=== PATIENT | male | born 1980 | race Caucasian/White ===

== ENCOUNTER 2021-02-25 11:12 | Outpatient (REF) | payer OTHER, SELFPAY ==
[2021-02-25 12:02] LABS: Imm Gran Abs Auto 0.01 X10*3/uL (0.00-0.03); Imm Gran Pct Auto 0.2 % (0.0-0.4); MANUAL DIFF FLAG SCAN; Mean Corpuscular HGB Conc 33.7 g/dl (31.0-36.0); PLT CLUMP 1; SCAN SMEAR FLAG 1
[2021-02-25 12:04] LABS: Basophils Percent Auto 0.5 % (0-2); Eosinophils Absolute Auto 0.2 X10*3/uL (0.0-0.4); Eosinophils Percent Auto 2.9 % (0-4); Hematocrit 45.7 % (42.0-52.0); Hemoglobin 15.4 g/dl (14.0-18.0); Lymphocytes Absolute Auto 1.4 X10*3/uL (1.2-4.9); Lymphocytes Percent Auto 24.8 % (20-40); Monocytes Absolute Auto 0.5 X10*3/uL (0.1-1.2); Monocytes Percent Auto 8.6 % (2-11); Neutrophils Absolute Auto 3.5 x10*3/uL (2.0-8.3); Red Blood Count 4.97 X10*6/uL (4.60-5.80); Red Cell Distribution Width 12.3 % (11.0-16.0); White Blood Count 5.6 X10*3/uL (4.8-10.8)
[2021-02-25 12:23] LABS: Platelet Count 196 X10*3/uL (160-400); SLIDE REVIEW VERIFIED
[2021-02-25 12:26] LABS: Alanine Aminotransferase 19 U/L (0-40); Albumin Level 4.6 g/dL (3.5-5.0); Alkaline Phosphatase 69 U/L (39-117); Anion Gap 13 (12-20); Aspartate Amino Transferase 24 U/L (5-37); Bilirubin Total 0.6 mg/dL (0.0-1.0); Blood Urea Nitrogen 14 mg/dL (9-16); C Reactive Protein 0.06 mg/dL (< or = 0.50); Calcium 9.8 mg/dL (8.4-10.2); Carbon Dioxide 25 mmol/L (22-29); Chloride 105 mmol/L (96-108); Estimated Glomerular Filt Rate > 60; Glucose Random 121 mg/dL (60-115); Potassium 4.3 mmol/L (3.3-5.1); Sodium 139 mmol/L (135-145); Total Protein 7.3 g/dL (6.5-8.0)
[2021-02-25 12:47] LABS: Prostate Specific Antigen 1.08 ng/mL (<0.05-4.0)
[2021-02-25 13:57] LABS: Appearance Urine CLEAR; Color Urine YELLOW; Glucose Urine UA NEG (NEG); Leukocyte Esterase Urine NEG (NEG); Nitrite Urine NEG (NEG); Urine Blood NEG (NEG); Urine Ketones NEG (NEG); Urine Protein NEG (NEG-TRACE)
[2021-03-02 18:36] LABS: Testosterone, Free 89.8 pg/mL (35.0-155.0); Testosterone, Total 528 ng/dL (250-1100)
== END 2021-02-25 11:13 | disposition home or self-care (01) ==
LOC: HO.LAB 11:12
PROVIDERS: PCP Internal Medicine; Visit Provider Internal Medicine
DX: Z12.5 Encounter for screening for malignant neoplasm of prostate (principal); R10.2 Pelvic and perineal pain; Z85.47 Personal history of malignant neoplasm of testis
CPT/HCPCS: 36415; 80053; 81003; 84153; 84402; 84403; 85025; 86140; 87086

== ENCOUNTER 2022-03-12 09:32 | Outpatient (REF) | payer OTHER, SELFPAY ==
[2022-03-12 10:26] LABS: Appearance Urine Clear; Color Urine Dark Yellow; Glucose Urine UA Negative (Negative); Leukocyte Esterase Urine Negative (Negative); Nitrite Urine Negative (Negative); PH 7.5 (5.0-9.0); Specific Gravity - Urine 1.025 (1.005-1.025); Urine Blood Negative (Negative); Urine Ketones Negative (Negative); Urine Protein Trace mg/dL (Neg-Trace)
[2022-03-12 10:31] LABS: Bacteria Urine None Seen (None Seen); Hyaline Casts Urine 0-2 /LPF (0-2); RBC Urine 0-2 /HPF (0-2); Squamous Epithelial Cell Urine 0-2 /HPF (0-2)
[2022-03-12 13:45] LABS: CT PCR NOT DETECTED (Not Detect.); NG PCR NOT DETECTED (Not Detect.)
== END 2022-03-12 09:33 | disposition home or self-care (01) ==
LOC: HO.LAB 09:32
PROVIDERS: PCP Internal Medicine; Visit Provider Internal Medicine
DX: Z11.3 Encounter for screening for infections with a predominantly sexual mode of transmission (principal); R30.0 Dysuria
CPT/HCPCS: 81001; 87086; 87491; 87591

== ENCOUNTER 2022-05-05 09:04 | Outpatient (REF) | payer OTHER, SELFPAY ==
[2022-05-05 09:16] LABS: MANUAL DIFF FLAG NO
[2022-05-05 10:10] LABS: Appearance Urine Clear; Color Urine Yellow; Glucose Urine UA Negative (Negative); Leukocyte Esterase Urine Negative (Negative); Nitrite Urine Negative (Negative); Specific Gravity - Urine 1.025 (1.005-1.025); Urine Blood Negative (Negative); Urine Ketones Trace mg/dL (Negative); Urine Protein Trace mg/dL (Neg-Trace)
[2022-05-05 10:12] LABS: Basophils Percent Auto 0.3 % (0-2); Eosinophils Absolute Auto 0.1 X10*3/uL (0.0-0.4); Eosinophils Percent Auto 1.1 % (0-4); Hematocrit 43.8 % (42.0-52.0); Hemoglobin 14.9 g/dl (14.0-18.0); Imm Gran Abs Auto 0.02 X10*3/uL (0.00-0.03); Imm Gran Pct Auto 0.3 % (0.0-0.4); Lymphocytes Absolute Auto 1.7 X10*3/uL (1.2-4.9); Lymphocytes Percent Auto 26.2 % (20-40); Mean Corpuscular Volume 88.3 fL (80.0-98.0); Mean Platelet Volume 11.1 fL (9.4-12.4); Monocytes Absolute Auto 0.6 X10*3/uL (0.1-1.2); Neutrophils Absolute Auto 4.1 x10*3/uL (2.0-8.3); Neutrophils Percent Auto 63.1 % (45-73); Platelet Count 270 X10*3/uL (160-400); Red Blood Count 4.96 X10*6/uL (4.60-5.80); Red Cell Distribution Width 12.4 % (11.0-16.0); White Blood Count 6.5 X10*3/uL (4.8-10.8)
[2022-05-05 11:06] LABS: Alanine Aminotransferase 18 U/L (0-40); Albumin Level 4.7 g/dL (3.5-5.0); Alkaline Phosphatase 63 U/L (39-117); Anion Gap 14 (12-20); Aspartate Amino Transferase 30 U/L (5-37); Bilirubin Total 0.9 mg/dL (0.0-1.0); Blood Urea Nitrogen 17 mg/dL (9-16); Calcium 9.6 mg/dL (8.4-10.2); Carbon Dioxide 27 mmol/L (22-29); Chloride 103 mmol/L (96-108); Cholesterol 133 mg/dL; Estimated Glomerular Filt Rate > 60; Glucose Fasting 111 mg/dL (60-99); HDL Cholesterol 39 mg/dL; LDL Cholesterol Calculated 83 mg/dl; Sodium 140 mmol/L (135-145); Total Protein 6.9 g/dL (6.5-8.0); Triglycerides 56 mg/dL
== END 2022-05-05 09:05 | disposition home or self-care (01) ==
LOC: HO.LAB 09:04
PROVIDERS: PCP Internal Medicine; Visit Provider Internal Medicine
DX: Z00.00 Encounter for general adult medical examination without abnormal findings (principal)
CPT/HCPCS: 36415; 80053; 80061; 81003; 85025

== ENCOUNTER 2022-06-04 13:35 | Outpatient (REF) | payer OTHER, SELFPAY ==
--- NOTE | ~2022-06-04 | XR_ITS ---
EXAMINATION: XR cervical spine min 6V CLINICAL INFORMATION: Pain COMPARISON: Cervical spine radiographs 05/18/2017 TECHNIQUE: 5 views of the cervical spine were obtained. FINDINGS: The cervical spine is visualized to the level of C7-T1 on the lateral view. Loss of the usual cervical spine lordosis which may be due to positioning or muscle spasm. Vertebral body heights are maintained. Lateral masses of C1 are well aligned on C2. Visualized portion of the dens is intact. Mild degenerative disc disease at C5-C6, manifested by small anterior disc osteophyte complex is similar to prior. Uncovertebral hypertrophy and facet arthropathy results in mild bilateral multilevel neural foraminal narrowing. No prevertebral soft tissue swelling. XR/XR cervical spine min 6V IMPRESSION: * Mild spondylosis of the cervical spine, as above detailed. Loss of the usual cervical spine lordosis. * Mild neural foraminal narrowing, as above detailed.
[2022-06-04 14:55] LABS: C Reactive Protein < 0.10 mg/dL (< or = 0.50); Rheumatoid Factor < 13.0 IU/mL (<15.0)
[2022-06-06 15:53] LABS: Anti Nuclear Antibody Screen NEGATIVE (NEGATIVE)
== END 2022-06-04 13:36 | disposition home or self-care (01) ==
LOC: HO.XRAY 13:35
PROVIDERS: PCP Internal Medicine; Visit Provider Internal Medicine
DX: M54.9 Dorsalgia, unspecified (principal); Z87.19 Personal history of other diseases of the digestive system
CPT/HCPCS: 36415; 72052; 82550; 86038; 86039; 86140; 86431

== ENCOUNTER 2022-12-25 15:13 | Outpatient (REF) | payer OTHER, SELFPAY ==
[2022-12-25 15:25] LABS: MANUAL DIFF FLAG NO
[2022-12-25 15:37] LABS: Basophils Percent Auto 0.3 % (0-2); Eosinophils Absolute Auto 0.1 X10*3/uL (0.0-0.4); Eosinophils Percent Auto 1.5 % (0-4); Hematocrit 43.2 % (42.0-52.0); Hemoglobin 14.5 g/dl (14.0-18.0); Imm Gran Abs Auto 0.02 X10*3/uL (0.00-0.03); Imm Gran Pct Auto 0.3 % (0.0-0.4); Lymphocytes Absolute Auto 1.1 X10*3/uL (1.2-4.9); Lymphocytes Percent Auto 16.2 % (20-40); Mean Corpuscular HGB Conc 33.6 g/dl (31.0-36.0); Mean Corpuscular Volume 89.4 fL (80.0-98.0); Monocytes Absolute Auto 0.6 X10*3/uL (0.1-1.2); Monocytes Percent Auto 9.5 % (2-11); Neutrophils Absolute Auto 4.9 x10*3/uL (2.0-8.3); Neutrophils Percent Auto 72.2 % (45-73); Platelet Count 232 X10*3/uL (160-400); Red Blood Count 4.83 X10*6/uL (4.60-5.80); Red Cell Distribution Width 12.1 % (11.0-16.0); White Blood Count 6.7 X10*3/uL (4.8-10.8)
[2022-12-25 16:26] LABS: Erythrocyte Sedimentation Rate 3 MM/HR (0-15)
[2022-12-25 16:56] LABS: Alanine Aminotransferase 16 U/L (0-40); Albumin Level 4.6 g/dL (3.5-5.0); Alkaline Phosphatase 58 U/L (39-117); Anion Gap 12 (12-20); Aspartate Amino Transferase 23 U/L (5-37); Bilirubin Total 0.7 mg/dL (0.0-1.0); Blood Urea Nitrogen 13 mg/dL (9-16); C Reactive Protein < 0.04 mg/dL (< or = 0.50); Calcium 9.3 mg/dL (8.4-10.2); Carbon Dioxide 27 mmol/L (22-29); Chloride 103 mmol/L (96-108); Cholesterol 147 mg/dL (<200); Estimated Glomerular Filt Rate > 60; Glucose Random 93 mg/dL (60-115); HDL Cholesterol 45 mg/dL (>40); LDL Cholesterol Calculated 93 mg/dL (<100); Lactate Dehydrogenase 167 U/L (118-273); Potassium 3.8 mmol/L (3.3-5.1); Sodium 138 mmol/L (135-145); Total Protein 7.3 g/dL (6.5-8.0); Triglycerides 48 mg/dL (<150)
[2022-12-25 17:16] LABS: Vitamin B12 509 pg/mL (200-900)
== END 2022-12-25 15:14 | disposition home or self-care (01) ==
LOC: HO.LAB 15:13
PROVIDERS: PCP Internal Medicine; Visit Provider Internal Medicine
DX: J45.909 Unspecified asthma, uncomplicated (principal); R63.4 Abnormal weight loss; M54.2 Cervicalgia; Z87.19 Personal history of other diseases of the digestive system
CPT/HCPCS: 36415; 80053; 80061; 82550; 82607; 83615; 85025; 85652; 86140

== ENCOUNTER 2023-01-04 12:53 | Outpatient (REF) | payer OTHER, SELFPAY ==
[2023-01-04 14:26] LABS: Free T4 (Free Thyroxine) 0.89 ng/dL (0.71-1.85); Thyroid Stimulating Hormone 0.85 uIU/mL (0.32-4.0)
== END 2023-01-04 12:54 | disposition home or self-care (01) ==
LOC: HO.LAB 12:53
PROVIDERS: PCP Internal Medicine; Visit Provider Internal Medicine
DX: R53.83 Other fatigue (principal)
CPT/HCPCS: 36415; 84439; 84443

== ENCOUNTER 2023-01-18 07:24 | Outpatient (REF) | payer OTHER, SELFPAY ==
--- NOTE | ~2023-01-18 | CT_ITS ---
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 Dandy-Walker variant. COMPARISON: None available. TECHNIQUE: Contiguous axial imaging was performed from the skull base to vertex without intravenous administration of contrast. This CT examination was performed using dose optimization techniques as appropriate, variously including the following: *Automated exposure control *Adjustment of mA and/or kV according to patient size (this includes techniques or standardized protocols for targeted exams where dose is matched to indication/reason for exam; i.e. 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 There is no intracranial hemorrhage, hydrocephalus, extra-axial surface collection, midline shift, or other herniation pattern. [place] to white matter differentiation is diffusely maintained without evidence of an evolved acute territorial infarct. The basilar cisterns are preserved. No significant soft tissue abnormality. No acute osseous abnormality. The paranasal sinuses and the mastoid air cells are well aerated. CT/CT head/brain wo IV con IMPRESSION: No acute intracranial abnormality. 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
== END 2023-01-18 07:25 | disposition home or self-care (01) ==
LOC: HO.CT 07:24
PROVIDERS: PCP Internal Medicine; Visit Provider Internal Medicine
DX: G93.0 Cerebral cysts (principal); J34.1 Cyst and mucocele of nose and nasal sinus
CPT/HCPCS: 70450

== ENCOUNTER 2023-02-16 11:16 | Outpatient (REF) | payer OTHER, SELFPAY ==
--- NOTE | ~2023-02-16 | XR_ITS ---
EXAMINATION: XR CERVICAL SPINE CLINICAL INFORMATION: Neck pain. COMPARISON: June 04, 2022 TECHNIQUE: 5 views of the cervical spine. FINDINGS: Straightening of the normal cervical lordosis. Visualization of C7-T1 remains limited due to overlying soft tissues. Moderate degenerative changes with hypertrophic change and loss of disc space height at C5-C6 redemonstrated. Uncovertebral hypertrophy and facet arthropathy with multilevel bilateral neural foraminal narrowing. XR/XR cervical spine 4V IMPRESSION: Mild cervical spondylosis. MRI recommended if there is clinical concern for fracture or other underlying pathology.
== END 2023-02-16 11:17 | disposition home or self-care (01) ==
LOC: HO.XRAY 11:16
PROVIDERS: PCP Internal Medicine; Visit Provider Internal Medicine
DX: M54.2 Cervicalgia (principal)
CPT/HCPCS: 72050

== ENCOUNTER 2023-05-15 04:12 | Emergency (ER) | payer OTHER, SELFPAY ==
--- NOTE | ~2023-05-15 | XR_ITS ---
EXAMINATION: XR CHEST CLINICAL INFORMATION: Cough. COMPARISON: None available. TECHNIQUE: Frontal view of the chest was obtained. FINDINGS: No significant abnormality is noted involving the heart, lungs, mediastinum, bony thorax or soft tissues. XR/XR chest 1V IMPRESSION: Unremarkable chest examination.
[2023-05-15 04:18] VITALS: BP 132/87; PULSE 92; RESP 16; TEMP 37; O2SAT 100; BMI 20.7
--- NOTE | 2023-05-15 04:24 | ECG_ITS ---
Test Reason : cp Blood Pressure : / mmHG Vent. Rate : 079 BPM Atrial Rate : 079 BPM P-R Int : 138 ms QRS Dur : 090 ms QT Int : 372 ms P-R-T Axes : 044 066 047 degrees QTc Int : 426 ms Normal sinus rhythm Early repolarization Otherwise normal ECG No previous ECGs available Referred By: Generic ED Physician Electronically Signed By:LEWIS BYNUM
[2023-05-15 05:06] VITALS: BP 138/79; PULSE 79; RESP 12; TEMP 36.6; O2SAT 99
[2023-05-15 05:07] LABS: Basophils Absolute Auto 0.1 X10*3/uL (0.0-0.2); Basophils Percent Auto 0.6 % (0-2); Eosinophils Absolute Auto 0.2 X10*3/uL (0.0-0.4); Eosinophils Percent Auto 2.1 % (0-4); Hematocrit 42.6 % (42.0-52.0); Hemoglobin 14.5 g/dl (14.0-18.0); Imm Gran Abs Auto 0.02 X10*3/uL (0.00-0.03); Imm Gran Pct Auto 0.2 % (0.0-0.4); Lymphocytes Absolute Auto 2.4 X10*3/uL (1.2-4.9); Lymphocytes Percent Auto 28.1 % (20-40); Mean Corpuscular Hemoglobin 29.5 pg (27.0-33.0); Mean Corpuscular Volume 86.8 fL (80.0-98.0); Mean Platelet Volume 10.1 fL (9.4-12.4); Monocytes Absolute Auto 0.8 X10*3/uL (0.1-1.2); Monocytes Percent Auto 9.3 % (2-11); Neutrophils Absolute Auto 5.1 x10*3/uL (2.0-8.3); Neutrophils Percent Auto 59.7 % (45-73); Platelet Count 304 X10*3/uL (160-400); Red Blood Count 4.91 X10*6/uL (4.60-5.80); Red Cell Distribution Width 12.4 % (11.0-16.0); White Blood Count 8.5 X10*3/uL (4.8-10.8)
[2023-05-15 05:08] LABS: MANUAL DIFF FLAG NO
--- OUTSIDE RECORDS SUMMARY | 2023-05-15 05:12 | XMS_ITS | Continuity of Care Document ---
Author Name Unknown Organization [facility] Address [address] [place] [address]- Care Team Providers Care Cloth Hand Name Role Phone Jamie Chen MD Primary Care Physician [phone] Encounter [facility] NBR [id number] Date(s): 07/14/21 - 07/21/21 [facility] [address] [place] [address]- Attending Physician: Gab Mar MD Admitting Physician: Gab Mar MD Referring Physician: Jamie Chen MD Allergies, Adverse Reactions, Alerts No Known Allergies Medications mesalamine 1.2 g oral delayed release tablet 4 tablet = 4.8 Gm, By Mouth, Daily, # 224 tablet, 0 Refills, Maintenance, 07/14/21 14:46:00 EDT, ECTablet, Partial fill upon patient request if the prescription is for a schedule II opioid drug. Start Date: 07/14/21 Status: Ordered Vital Signs Most recent to oldest [Reference Range]: 1 Weight 77.4 kg (07/14/21 2:42 PM) Pulse Rate [55-90 bpm] 93 bpm *H* (07/14/21 2:42 PM) Blood Pressure [90-138/55-84 mm Hg] 123/ 65mm Hg (07/14/21 2:42 PM) Blood pressure sites Arm, right (07/14/21 2:42 PM) Weight Obtained Via Standing scale (07/14/21 2:42 PM)
--- OUTSIDE RECORDS SUMMARY | 2023-05-15 05:12 | XMS_ITS | Continuity of Care Document ---
Author Name Unknown Organization [facility] Address [address] [place] [address]- Care Team Providers Care Schedule Hanger Name Role Phone Jamie Chen MD Primary Care Physician Encounter [facility] [place] Date(s): 07/14/21 - 08/13/21 [facility] [address] [place] [id number]- Attending Physician: Maurizio Johnson Admitting Physician: Maurizio Johnson Referring Physician: AdmtrMaurizio Allergies, Adverse Reactions, Alerts No Known Allergies Medications mesalamine 1.2 g oral delayed release tablet 4 tablet = 4.8 Gm, By Mouth, Daily, # 224 tablet, 0 Refills, Maintenance, 07/14/21 14:46:00 EDT, ECTablet, Partial fill upon patient request if the prescription is for a schedule II opioid drug. Start Date: 07/14/21 Status: Ordered
[2023-05-15 05:21] LABS: IDNOW Serial# 08D9AD1C; Influenza A Negative (Negative); Influenza B2 Negative (Negative)
[2023-05-15 05:22] LABS: COVID-19 Test Negative (Negative); IDNOW Serial# 152EDE1D
[2023-05-15 05:24] LABS: Alanine Aminotransferase 16 U/L (0-40); Albumin Level 4.4 g/dL (3.5-5.0); Alkaline Phosphatase 72 U/L (39-117); Anion Gap 14 (12-20); Aspartate Amino Transferase 21 U/L (5-37); Bilirubin Total 0.3 mg/dL (0.0-1.0); Blood Urea Nitrogen 9 mg/dL (9-16); Calcium 9.7 mg/dL (8.4-10.2); Carbon Dioxide 27 mmol/L (22-29); Chloride 101 mmol/L (96-108); Creatinine Clr Calc Pharmacy 110.5; Estimated Glomerular Filt Rate > 60; Glucose Random 111 mg/dL (60-115); Potassium 3.5 mmol/L (3.3-5.1); Sodium 138 mmol/L (135-145); Total Protein 7.3 g/dL (6.5-8.0)
--- NOTE | 2023-05-15 06:22 | ED.GENADULT ---
HPI - General Adult General Chief complaint: Upper Respiratory Symptoms Stated complaint: asthma Time Seen by Provider: 05/15/23 06:22 Source: patient Mode of arrival: ambulatory Limitations: no limitations History of Present Illness HPI narrative: Patient is a 43-year-old male with history of asthma presenting to the emergency department with complaint of worsening cough over the past week. States cough is nonproductive, denies fevers. 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 Also complains of persistent mild headaches states he typically does not require an inhaler for his asthma but required one today. Cough worsens with laying supine. Reports left lower rib pain with coughing which he states happens frequently when he is sick with URI symptoms. He denies hemoptysis. He denies any abdominal pain, nausea, vomiting, diarrhea. Denies chest pain or palpitations. Used OTC guaifenisen with little relief. MD complaint: cough Onset (ago): week(s) Associated symptoms: headaches Treatments prior to arrival: other Related Data Previous Rx's Medication Instructions Recorded benzonatate 100 mg capsule 100 mg PO TID PRN cough #20 caps 05/15/23 prednisone 20 mg tablet 40 mg (2 x 20 mg) PO DAILY #10 tabs 05/15/23 Allergies Allergy/AdvReac Type Severity Reaction Status Date / Time Iodinated Contrast Media Allergy Unknown FAINT, Verified 05/15/23 04:17 [IV DYE, IODINE CONTAINING ITCHY CONTRAST ] NSAIDS (Non-Steroidal Allergy Unknown GI BLEEDING Verified 05/15/23 04:17 Anti-Inflamma [NSAIDS (NON-STEROIDAL ANTI-INFLAMMA] seasonal Allergy Unknown congestion Uncoded 08/30/15 00:00 SHELLFISH Allergy Unknown NAUSEA, Uncoded 12/21/19 14:58 ITCHY shellfish Allergy Unknown itching Uncoded 08/30/15 00:00 Review of Systems Review of Systems: As per HPI. Yes all other systems are reviewed and are negative Constitutional: Constitutional: Reports as per HPI [facility] Social History Social History Smoked in Last 30 Days: No Use of substances other than those prescribed or required for medical reasons: No Advance Directives: No Advance Directives Information Provided: No Physical Exam ED Vital Signs: Vital Signs - 24 hr 05/15/23 04:18 05/15/23 05:06 Temperature 98.6 F 98 F Pulse Rate 92 79 Respiratory Rate 16 12 Blood Pressure 132/87 138/79 Pulse Oximetry 100 99 Oxygen Delivery Method Room Air Room Air BMI result Body Mass Index 20.7 Vital signs have been reviewed and appear to be correct. Blood pressure normal. Heart rate normal. Respiratory rate normal. Temperature normal. Oxygen saturation normal. Const General: cooperative, healthy appearing and no acute distress Orientation/consciousness: oriented to person, oriented to place, oriented to time and patient oriented x3 Limitations: no limitations HENMT Head: Yes normocephalic and Yes atraumatic Ears: external ears normal General nose exam: Normal external nose present Face and sinus: Yes face symmetric Mouth: oropharynx normal and moist mucous membranes Throat: Yes uvula midline Eyes Pupils: Equal, round and reactive pupils present Neck Neck: Yes normal visual inspection and Yes supple Chest Chest palpation & inspection: normal inspection of the chest and normal palpation of entire chest wall Resp Effort & Inspection: normal respiratory effort and able to speak in complete sentences Auscultation: clear to auscultation bilaterally Cardio Rate: regular rate Rhythm: regular rhythm Heart sounds: S1 normal heart sound present and S2 normal heart sound present GI Palpation (GI): Soft to palpation and nontender Auscultation: normoactive bowel sounds General: Yes no CVA tenderness Back/Spine/Pelvis Back: no CVA tenderness Skin General skin exam: elasticity normal and turgor normal Neuro General: oriented to person, oriented to place, oriented to time, patient oriented x3, moves all extremities, no focal motor deficits and CN's II-XI intact bilaterally Cranial nerves: Yes Equal, round and reactive pupils present Cognition (Neuro): normal cognition Extrem General: Yes full ROM, Yes no pedal edema and Yes no calf tenderness Psych Mental Status: mental status grossly normal Affect: normal affect Thought process: Normal thought process present Medical Decision Making Medical Decision Making MDM Narrative: Patient is a 43-year-old male with history of asthma presenting to the emergency department with complaint of worsening cough over the past week. On exam patient is awake, A+Ox3, VS WNL, afebrile, normal neurological exam without focal deficits, physical exam findings as above. Given reported symptoms and physical exam findings, initial differential includes viral URI, asthma exacerbation, Covid, flu, bronchitis, pneumonia. Unlikely acute carbon monoxide toxicity, but will obtain carboxyhemoglobin level at patient request. Labs notable for normal carboxyhemoglobin, no leukocytosis, no anemia, no electrolye abnormalities. X-ray notable for no evidence of pneumonia. My interpretation is in agreement with the radiologist's interpretation. Feel patient is stable for discharge home at this time. Will treat with course of prednisone, benzonatate, patient stating he has adequate amount of albuterol inhaler at home. Return precautions discussed. Advised patient to follow up with PCP. Patient verbalized understanding of and agreement with plan. Differential Diagnosis Differential Diagnoses: The differential diagnosis associated with the presentation includes As per [facility] Lab Data [facility] Lab Attestation statement: I reviewed the patient's lab results. As per [facility] 05/15/23 05:00 05/15/23 05:00 Labs: Lab Results 05/15/23 05/15/23 Range/Units 05:00 06:53 WBC 8.5 (4.8-10.8) X10*3/uL RBC 4.91 (4.60-5.80) X10*6/uL Hgb 14.5 (14.0-18.0) g/dl Hct 42.6 (42.0-52.0) % MCV 86.8 (80.0-98.0) fL MCH 29.5 (27.0-33.0) pg MCHC 34.0 (31.0-36.0) g/dl RDW 12.4 (11.0-16.0) % Plt Count 304 D (160-400) X10*3/uL MPV 10.1 (9.4-12.4) fL Immature Gran % (Auto) 0.2 (0.0-0.4) % Neut % (Auto) 59.7 (45-73) % Lymph % (Auto) 28.1 (20-40) % Gates % (Auto) 9.3 (2-11) % Eos % (Auto) 2.1 (0-4) % Baso % (Auto) 0.6 (0-2) % Lymph # (Auto) 2.4 (1.2-4.9) X10*3/uL Gates # (Auto) 0.8 (0.1-1.2) X10*3/uL Eos # (Auto) 0.2 (0.0-0.4) X10*3/uL Baso # (Auto) 0.1 (0.0-0.2) X10*3/uL Abs Immat Gran (auto) 0.02 (0.00-0.03) X10*3/uL Absolute Neuts (auto) 5.1 (2.0-8.3) x10*3/uL Absolute Nucleated RBC 0.000 (0.0-0.012) X10*3/uL Nucleated RBC % (auto) 0.0 (0.0-0.2) /100WBC Carboxyhemoglobin % 2.2 % Sodium 138 (135-145) mmol/L Potassium 3.5 (3.3-5.1) mmol/L Chloride 101 (96-108) mmol/L Carbon Dioxide 27 (22-29) mmol/L Anion Gap 14 (12-20) BUN 9 (9-16) mg/dL Creatinine 0.79 (0.5-1.4) mg/dL Estim Creat Clear Calc 110.5 Estimated GFR > 60 Random Glucose 111 (60-115) mg/dL Calcium 9.7 (8.4-10.2) mg/dL Total Bilirubin 0.3 (0.0-1.0) mg/dL AST 21 (5-37) U/L ALT 16 (0-40) U/L Alkaline Phosphatase 72 (39-117) U/L Total Protein 7.3 (6.5-8.0) g/dL Albumin 4.4 (3.5-5.0) g/dL COVID-19 (GENEVIEVE) Negative (Negative) COVID-19 Clin Com See Note Influenza Type A (YASMIN) Negative (Negative) Influenza Type B (YASMIN) Negative (Negative) Influenza A & B Note See Note Independent Interpretation I performed an independent interpretation of an: Plain X-Ray Interpretation: No evidence of pneumonia. Radiology Impression Discussion of test interpretation with radiology: I have reviewed the radiologist's reading. Radiologist Impression: XR/XR chest 1V IMPRESSION: Unremarkable chest examination. External Record Review External record reviewed: Inpatient record, Office record and Outpatient record Prescription Management I considered prescription management with: Other Discharge Plan Discharge Clinical Impression: Viral upper respiratory infection, Asthma exacerbation Patient Disposition: Home, Self-Care Instructions: Asthma (DC), Viral Syndrome (ED) Additional Instructions: You were evaluated in the emergency department today for cough. Your Covid and flu tests were negative. Your symptoms are likely related to a viral illness which will resolve on its own with time and rest. You are being prescribed a short course of steroids to decrease inflammation as well as cough medicine. Please take these medications as prescribed. You should ensure adequate fluid intake, and can use Tylenol 650 mg or ibuprofen 600 mg every 6 hours as needed for fever or discomfort. Please follow-up with your primary care provider this week. Return to the emergency department if you develop chest pain, worsening shortness of breath, difficulty swallowing, fever 100.4? F or greater or any other concerning symptoms. Prescriptions: New prednisone 20 mg tablet 40 mg PO DAILY Qty: 10 0RF benzonatate 100 mg capsule 100 mg PO TID PRN (Reason: cough) Qty: 20 0RF
[2023-05-15 06:59] LABS: Carbon Monoxide POC 2.2 %
[2023-05-15 07:02] LABS: Carbon Monoxide Refer to POC result
[2023-05-15 08:32] VITALS: BP 128/90; PULSE 79; RESP 16; TEMP 36.6; O2SAT 100
== END 2023-05-15 08:38 | disposition home or self-care (01) ==
PROVIDERS: Registered Nurse Emergency; Emergency Provider Emergency Medicine; PCP Internal Medicine
DX: J06.9 Acute upper respiratory infection, unspecified (principal); J45.901 Unspecified asthma with (acute) exacerbation; Z11.52 Encounter for screening for COVID-19
CPT/HCPCS: 36415; 71045; 80053; 82375; 85025; 87502; 87635; 93005; 99283; 99285

== ENCOUNTER → 2023-05-15 04:24 | Outpatient (BNV) | payer OTHER, SELFPAY | PROVIDERS: Emergency Provider Emergency Medicine; PCP Internal Medicine; Visit Provider Internal Medicine | DX: R07.9 Chest pain, unspecified (principal) | CPT/HCPCS: 93010 ==

== ENCOUNTER 2023-09-23 14:54 | Outpatient (REF) | payer OTHER, SELFPAY ==
[2023-09-23 15:11] LABS: MANUAL DIFF FLAG NO
[2023-09-23 15:43] LABS: Basophils Percent Auto 0.4 % (0-2); Eosinophils Absolute Auto 0.1 X10*3/uL (0.0-0.4); Eosinophils Percent Auto 1.2 % (0-4); Hemoglobin 15.2 g/dl (14.0-18.0); Imm Gran Abs Auto 0.02 X10*3/uL (0.00-0.03); Imm Gran Pct Auto 0.3 % (0.0-0.4); Lymphocytes Absolute Auto 1.4 X10*3/uL (1.2-4.9); Lymphocytes Percent Auto 20.5 % (20-40); Mean Corpuscular HGB Conc 34.5 g/dl (31.0-36.0); Mean Corpuscular Hemoglobin 30.8 pg (27.0-33.0); Mean Corpuscular Volume 89.2 fL (80.0-98.0); Mean Platelet Volume 10.1 fL (9.4-12.4); Monocytes Absolute Auto 0.5 X10*3/uL (0.1-1.2); Neutrophils Absolute Auto 4.7 x10*3/uL (2.0-8.3); Neutrophils Percent Auto 69.6 % (45-73); Platelet Count 298 X10*3/uL (160-400); Red Blood Count 4.93 X10*6/uL (4.60-5.80); White Blood Count 6.7 X10*3/uL (4.8-10.8)
[2023-09-23 16:22] LABS: Alanine Aminotransferase 16 U/L (0-40); Albumin Level 4.8 g/dL (3.5-5.0); Alkaline Phosphatase 68 U/L (39-117); Anion Gap 14 (12-20); Aspartate Amino Transferase 22 U/L (5-37); Blood Urea Nitrogen 11 mg/dL (9-16); C Reactive Protein < 0.04 mg/dL (< or = 0.50); Calcium 9.8 mg/dL (8.4-10.2); Carbon Dioxide 29 mmol/L (22-29); Chloride 103 mmol/L (96-108); Cholesterol 173 mg/dL (<200); Estimated Glomerular Filt Rate > 60; Glucose Random 101 mg/dL (60-115); Sodium 142 mmol/L (135-145); Total Protein 7.6 g/dL (6.5-8.0)
[2023-09-23 16:27] LABS: Erythrocyte Sedimentation Rate 3 MM/HR (0-15)
[2023-09-23 16:33] LABS: Free T4 (Free Thyroxine) 0.93 ng/dL (0.71-1.85)
[2023-09-23 16:37] LABS: Vitamin B12 520 pg/mL (200-900)
== END 2023-09-23 14:55 | disposition home or self-care (01) ==
LOC: HO.LAB 14:54
PROVIDERS: PCP Internal Medicine; Visit Provider Internal Medicine
DX: J45.909 Unspecified asthma, uncomplicated (principal); M54.2 Cervicalgia
CPT/HCPCS: 36415; 80053; 82465; 82550; 82607; 84439; 84443; 85025; 85652; 86140

== ENCOUNTER 2024-10-02 13:55 | Outpatient (AMB) | payer OTHER, SELFPAY ==
--- NOTE | 2024-10-02 13:22 | A.OFFPC_ITS ---
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 Required: No Accompanied by: Self / Same As Patient Allergies Iodinated Contrast Media (IV DYE, IODINE CONTAINING CONTRAST ) Allergy (Intermediate, Verified 10/02/24 14:33) FAINT, ITCHY NSAIDS (Non-Steroidal Anti-Inflamma (NSAIDS (NON-STEROIDAL ANTI-INFLAMMA) Allergy (Intermediate, Verified 10/02/24 14:33) GI BLEEDING Seasonal Allergies Allergy (Intermediate, Verified 10/02/24 14:33) Nasal congestion shellfish derived Allergy (Intermediate, Verified 10/02/24 14:33) nausea/itching Medication List - Last Reconciled 10/02/24 by Slick Camarillo MD albuterol sulfate 90 mcg/actuation (Ventolin HFA) 2 puffs inhalation BID PRN duloxetine 20 mg PO DAILY mesalamine 4.8 grams PO DAILY Tobacco use date assessed: 10/02/24 Dental Screening Dental Screen Date: 10/02/24 Did you have a dental visit in the last 12 months?: Yes Did you have a dental problem in the last 6 months where you did not have access to dental care?: No PFSH Medical History Ulcerative colitis Testicular cancer Surgical History Hx of unilateral orchiectomy H/O colonoscopy Family History (Updated 10/02/24 @ 14:07 by Tika Suggs MA) Mother No problems noted. Father Psoriasis Social History Housing: House Patient Tobacco Use Status: Former Tobacco user e-Cigarette/Vaping Use: Former Use service: No Current occupational status: unemployed Cognitive needs: No Hearing needs: No Vision needs: Yes (rx glasses) Questionnaire PHQ-9 Over the last 2 weeks, how often have you been bothered by any of the following problems? 1. Little interest or pleasure in doing things: not at all 2. Feeling down, depressed, or hopeless: not at all 3. Trouble falling or staying asleep, or sleeping too much: not at all 4. Feeling tired or having little energy: not at all 5. Poor appetite or overeating: not at all 6. Feeling bad about yourself - or that you are a failure or have let yourself or your family down: not at all 7. Trouble concentrating on things, such as reading the newspaper or watching television: not at all 8. Moving or speaking so slowly that other people could have noticed. Or the opposite - being so fidgety or restless that you have been moving around a lot more than usual: not at all 9. Thoughts that you would be better off or of hurting yourself in some way: not at all Total score: 0 Source: Developed by Drs. Marques Davies, Bee Decker, Kenneth Sanderson and colleagues, with an educational kody from [employer]. Thrive Questionnaire Date Thrive assessed: 10/02/24 I am a: Patient Within the past 12 months, did the food you bought not last and you didn't have the money to get more?: Never true Within the past 12 months, did you worry whether your food would run out before you got money to buy more?: Never true Do you have trouble paying for medicines?: No Do you have trouble getting transportation to medical appointments?: No Do you have trouble paying your heating and electricity bill?: No Do you have trouble taking care of your child, family member or friend?: No Do you have trouble with day-to-day activities such as bathing, preparing meals, shopping, managing finances, etc.?: No Are you currently unemployed and looking for a job?: No Are you interested in more education?: No THRIVE Score: 0 AUDIT C Alcohol Use Questionnaire (AUDIT-C) 1. How often do you have a drink containing alcohol?: Never 3. How often do you have six or more drinks on one occasion?: Never Total Score: 0 OPAL-7 AMB Questionnaire OPAL-7 Date OPAL - 7 assessed: 10/02/24 Feeling nervous, anxious, or on edge: 0 = Not at all Not being able to stop or control worryin = Not at all Worrying too much about different things: 0 = Not at all Trouble relaxin = Not at all Being so restless that it is hard to sit still: 0 = Not at all Becoming easily annoyed or irritable: 0 = Not at all Feeling afraid as if something awful might happen: 0 = Not at all Total OPAL-7 score (0-4 normal; 5-9 mild; 10-14 moderate; 15-21 severe): 0 Source: Developed by Drs. Marques Davies, Bee Decker, Kenneth Sanderson and colleagues, with an educational kody from [employer]. Physical exam (Primary Care) Vital Signs: Last Vital Signs Temp 98 F 10/02/24 14:01 Pulse 101 H 10/02/24 14:01 BP 128/70 10/02/24 14:01 Pulse Ox 99 10/02/24 14:01 Oxygen Delivery Method Room Air 10/02/24 14:01 BMI result Body Mass Index 23.7 Tobacco/Smoking Status: Tobacco use Status Tobacco use date assessed 10/02/24 10/02/24 13:23 Patient Tobacco Use Status Former Tobacco user 10/02/24 13:23 e-Cigarette/Vaping Use Former Use 10/02/24 14:07 PHQ-9: PHQ-9 Score PHQ-9: Total score 0 10/02/24 14:07 Thrive Assessment: Date of Thrive Assessment Date Thrive assessed 10/02/24 10/02/24 13:23 Coding Level of Care Code New Pt Level 4 (53301) New Pt Prev Care 40-64y(40375) Diagnoses Osteoarthritis of cervical spine M47.812 Testicular cancer C62.90 Ulcerative colitis K51.90 Assessment & Plan Assessment & Plan (1) Osteoarthritis of cervical spine: Code(s): M47.812 - Spondylosis without myelopathy or radiculopathy, cervical region Plan: Cyclobenzaprine added to the regimen. (2) Testicular cancer: Comment: w/right orchiectomy Code(s): C62.90 - Malignant neoplasm of unspecified testis, unspecified whether descended or undescended Category: Medical (3) Ulcerative colitis: Code(s): K51.90 - Ulcerative colitis, unspecified, without complications Category: Medical Plan: COndtion is stable. Continue current medications Plan History of Present Illness - The patient is a 44-year-old male presenting for a physical examination and management of chronic pain conditions. - Fibromyalgia was diagnosed a few months ago, with symptoms of joint and muscle pain persisting for about seven to eight years. - The patient has a history of testicular cancer treated with chemotherapy in 2011, which has led to ongoing musculoskeletal issues. - Neck and upper back pain have been significant since 2017 or 2018, with imaging showing disc height issues, spondylosis, and loss of cervical lordosis. - The patient experiences a clicking sensation in the neck and thumb joints, described as a trigger thumb phenomenon. - Duloxetine was initiated approximately two years ago for pain management, providing some improvement in mobility but limited pain relief. - Colitis is managed with mesalamine prescribed by Dr. Santiago. - Asthma is managed with albuterol as needed. - The patient has a history of tobacco use, having quit in 2017, and has reduced alcohol consumption due to family history of cirrhosis. - Previous physical therapy and chiropractic interventions provided limited relief for neck pain. 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 - Substance Use: Quit smoking in 2017, reduced alcohol intake due to family history of cirrhosis. Review of Systems - Musculoskeletal: Reports chronic joint and muscle pain, neck and upper back pain, clicking sensation in neck and thumb joints. - Respiratory: Reports asthma managed with albuterol as needed. - Gastrointestinal: Reports colitis managed with mesalamine. Physical Exam General: Cooperative and healthy appearing Nutritional Appearance: Well nourished Orientation/consciousness: Patient oriented x3 Limitations: No limitations Head: Normal to inspection General: Appearance normal, both eyes and all related structures Neck: Normal visual inspection Chest: Normal palpation of entire chest wall Respiratory: N ormal respiratory effort Neurology: Patient oriented x3, reports neck and upper back pain, with noted tension and clicking in the neck and thumb joints. Right testicle is missing, leading to left leg dominance and sciatic-like symptoms. Results - Imaging: Previous cervical spine imaging showed disc height issues, spondylosis, and loss of cervical lordosis. Plan 1. Fibromyalgia - Continue current management with duloxetine, although it provides limited pain relief. - Consider referral to an orthopedic surgeon for further evaluation. 2. Spondylosis - Symptomatic treatment with physical therapy and potential muscle relaxants. - Consider further imaging to assess current status. 3. Colitis - Continue management with mesalamine as prescribed by Dr. Santiago. 4. Asthma - Continue as-needed use of albuterol inhaler. 5. Preventative Care - Order blood work including cholesterol and inflammatory markers. Discussion Notes During the visit, we discussed the management of fibromyalgia with duloxetine, acknowledging its limited efficacy in pain relief but some improvement in mobility. We also considered the potential benefit of a referral to an orthopedic surgeon for further evaluation of musculoskeletal issues. For spondylosis, symptomatic treatment options such as physical therapy and muscle relaxants were discussed, along with the possibility of further imaging to assess the current status. The patient was advised to continue mesalamine for colitis and albuterol for asthma as needed. Preventative care measures include ordering blood work to check cholesterol and inflammatory markers. Patient Instructions - Continue taking duloxetine as prescribed for fibromyalgia. - Follow up with Dr. Santiago for colitis management. - Use albuterol inhaler as needed for asthma symptoms. - Schedule blood work for cholesterol and inflammatory markers. - Consider physical therapy and discuss muscle relaxants with your healthcare provider. Orders: Orders MR cervical spine wo con Today Slick Camarillo MD M47.812 - Spondylosis without myelopathy or radiculopathy, cervical region Basic Metabolic Panel Today Slick Camarillo MD C62.90 - Malignant neoplasm of unspecified testis, unspecified whether descended or undescended, K51.90 - Ulcerative colitis, unspecified, without complications Lipid Panel Today Slick Camarillo MD C62.90 - Malignant neoplasm of unspecified testis, unspecified whether descended or undescended, K51.90 - Ulcerative colitis, unspecified, without complications Complete Blood Count no Diff Today Slick Camarillo MD C62.90 - Malignant neoplasm of unspecified testis, unspecified whether descended or undescended, K51.90 - Ulcerative colitis, unspecified, without complications C Reactive Protein Today Slick Camarillo MD C62.90 - Malignant neoplasm of unspecified testis, unspecified whether descended or undescended, K51.90 - Ulcerative colitis, unspecified, without complications Liver Panel Today Slick Camarillo MD C62.90 - Malignant neoplasm of unspecified testis, unspecified whether descended or undescended, K51.90 - Ulcerative colitis, unspecified, without complications Thyroid Stimulating Hormone Today Slick Camarillo MD C62.90 - Malignant neoplasm of unspecified testis, unspecified whether descended or undescended, K51.90 - Ulcerative colitis, unspecified, without complications UA and rflx microscopic Today Slick Camarillo MD C62.90 - Malignant neoplasm of unspecified testis, unspecified whether descended or undescended, K51.90 - Ulcerative colitis, unspecified, without complications Medications: Discontinued benzonatate Discontinued Reason: Stopped on Transfer 100 mg PO TID PRN 20 caps 0RF baron Suggs MA prednisone Discontinued Reason: Patient no longer taking 40 mg (2 x 20 mg) PO DAILY 10 tabs 0RF Tika Suggs MA
[2024-10-02 14:01] VITALS: BP 128/70; PULSE 101; TEMP 36.6; O2SAT 99; BMI 23.7
--- OUTSIDE RECORDS SUMMARY | 2024-10-02 14:30 | XMS_ITS | Patient Health Record ---
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 Name Role Phone Jamie Chen MD Primary Care Provider Marques Petersen Unavailable [phone] Allergies Allergen (clinical drug ingredient) Drug/Non Drug Allergy documented on EMR Reaction Allergy Type Onset Date Status Gadolinium Unknown Drug Allergy Active Reason For Referral No Information Medications Medication SIG (Take, Route, Frequency, Duration) Notes Start Date End Date Status Ventolin HFA 108 (90 Base) MCG/ACT Inhalation for 50 Days Activ e SUMAtriptan Succinate 50 MG TAKE 1 TABLE T BY MOUTH DAILY NEEDED FOR HEADACHE Oral for 30 Days Active Mesalamine 1.2 GM 4 Orally Once a day for 30 day(s) 05/14/2024 Active DULoxetine HCl 20 MG Oral for 30 Active Immunizations Vaccine Route Administration Date Status Comme nts Influenza Unknown 03/05/2018 Administered Influenza Unknown 02/26/2021 Administered Influenza Unknown 04/05/2023 Administered Social History Tobacco Use: Social History Observation Description Date Details (start date - stop date) Former Smoker NA - NA Tobacco Use/Smoking Question Answer Notes Patient is a former smoker When did you stop smoking? 2018 How long has it been since you last smoked? 6-12 months Alcohol Screen Question Answer Notes Did you have a drink contain ing alcohol in the past year? Yes How often did you have a dri nk containing alcohol in the past year? Monthly or less (1 point) How many drinks did you have on a typical day when you were drinking in the past year? 1 or 2 drinks (0 point) How often did you have 6 or more drinks on one occasion in the past year? Never (0 point) Points 1 Interpretation Negative Section Notes: Nonsmoker since 2011; no sig alcohol Nonsmoker since 2011; no sig alcohol Smoker--trying to quit; drin ks twice a week--somewhat heavy Smoker; drinks twice a week- -somewhat heavy Former smoker; drinks twice a month--somewhat heavy Occasional smoker; drinks tw ice a month--6-pack Occasional smoker; drinks ON CE a month--6-pack Occasional smoker; drinks al cohol occasionally Occasional smoker; drinks al cohol occasionally Problems Problem Type SNOMED Code ICD Code Onset Dates Problem Status W/U Status Risk Notes Problem 752073964 Colon cancer screening (Z12.11) Active confirmed Problem 75530563 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) Active confirmed Problem 60631548 Diarrhea, unspecified type (R19.7) Active confirmed Vital Signs Temperature 97.5 degrees Fahrenheit 08/16/2024 Blood pressure diastolic 01 mm Hg 08/16/2024 Height 69 in 08/16/2024 Blood pressure systolic 001 mm Hg 08/16/2024 Weight 153.4 lbs 08/16/2024 BMI 22.65 kg/m2 08/16/2024 Procedures Procedure Date Ordered Date Performed Result Body Sit e COLONOSCOPY 08/16/2024 N/A Encounters Encounter Location Date Provider Diagnosis [facility] [address] [place] [phone] 08/16/2024 Marques Santiago Ulcerative rectosigmoiditis without complication K51.30 and Colon cancer screening Z12.11 [facility] [address] [place] [phone] 04/28/2024 Marques Santiago [facility] [address] [place] [phone] 08/15/2024 Marques Santiago [facility] [address] [place] [phone] 08/16/2024 Marques Santiago Assessments Encounter Date Diagnosis (ICD Code) Assessment Notes Treatment Notes Treatment Clinical Notes Section Notes 08/16/2024 Ulcerative rectosigmoiditis without complication (ICD-10 - K51.30) Overall, Farshad appears well. Based on his clinical history it does seem that his colitis is in clinical remission for the most part. Even on the days of some loose bowel movements this does not seem to be consistent with colitis given the short-lived symptoms, no bleeding, no abdominal pain, and no report of any mucus in the stools. I did advise him to continue the 4.8 g of mesalamine daily as he is doing. We did review the need for a screening colonoscopy again given that he has had his colitis for more than a decade. I did reassure him about the anesthesia which typically is very safe and very well-tolerated . Full consent has been obtained for the colonoscopy, including risks of bleeding and perforation. The procedure will be done with monitored anesthesia care. We did review the rationale for the colonoscopy in regard to colorectal cancer prevention and/or early detection. At this point Farshad is comfortable with this plan. I did advise Farshad to contact me prior to the procedure if he has any problems or questions I can be of assistance with. Thank you again for allowing me to participate in Farshad's care. I shall continue to keep you advised of his progress. 08/16/2024 Colon cancer screening (ICD-10 - Z12.11) Overall, Farshad appears well. Based on his clinical history it does seem that his colitis is in clinical remission for the most part. Even on the days of some loose bowel movements this does not seem to be consistent with colitis given the short-lived symptoms, no bleeding, no abdominal pain, and no report of any mucus in the stools. I did advise him to continue the 4.8 g of mesalamine daily as he is doing. We did review the need for a screening colonoscopy again given that he has had his colitis for more than a decade. I did reassure him about the anesthesia which typically is very safe and very well-tolerated . Full consent has been obtained for the colonoscopy, including risks of bleeding and perforation. The procedure will be done with monitored anesthesia care. We did review the rationale for the colonoscopy in regard to colorectal cancer prevention and/or early detection. At this point Farshad is comfortable with this plan. I did advise Farshad to contact me prior to the procedure if he has any problems or questions I can be of assistance with. Thank you again for allowing me to participate in Farshad's care. I shall continue to keep you advised of his progress. Plan Of Treatment Pending Test Test Name Order Date COLONOSCOPY 08/16/2024 CLOSTRIDIUM DIFF TOXIN A&B (C DIFF) 07/04 CULTURE, STOOL 07/17/2015 Future Test Test Name Order Date COLONOSCOPY 04/04/2013 COLONOSCOPY 04/07/2023 Next Appt Details Provider Name:Marques Santiago , 10/27/2024 10:30:00 AM, [address] [facility] , [place], [place], [id number], Insurance Providers Payer Name Payer Address Payer Phone Subscriber Number Group Number Insured Name Patient Relationship to Insured Coverage Start Date Coverage End Date [facility] [address] [address] [place], [place] [id number] FARSHAD CLINE Self - patient is the insured Medical (General) History Medical History History ICD Code Testicular cancer--08/2011 ri ght orchiectomy--10/2011-01/2012 chemo-Dr. Castellanos-in remission Denies NM,DM,CVA,Lung disease,renal dise ase Describes neg. 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
== END 2024-10-02 14:33 | disposition home or self-care (01) ==
LOC: HO.HMCHD 13:56
PROVIDERS: PCP Internal Medicine; Visit Provider Internal Medicine
DX: Z00.00 Encounter for general adult medical examination without abnormal findings (principal); M47.812 Spondylosis without myelopathy or radiculopathy, cervical region; C62.90 Malignant neoplasm of unspecified testis, unspecified whether descended or undescended; K51.90 Ulcerative colitis, unspecified, without complications

== ENCOUNTER → 2024-10-02 13:55 | Outpatient (BNVA) | payer OTHER, SELFPAY | PROVIDERS: PCP Internal Medicine; Visit Provider Internal Medicine | DX: M47.812 Spondylosis without myelopathy or radiculopathy, cervical region (principal); C62.90 Malignant neoplasm of unspecified testis, unspecified whether descended or undescended; K51.90 Ulcerative colitis, unspecified, without complications; M79.7 Fibromyalgia; J45.909 Unspecified asthma, uncomplicated | CPT/HCPCS: 99202; 99386 ==

== ENCOUNTER → 2025-02-02 18:18 | Outpatient (BNV) | payer OTHER, SELFPAY | PROVIDERS: PCP Internal Medicine; Visit Provider Radiology Diagnostic Radiology | DX: M47.812 Spondylosis without myelopathy or radiculopathy, cervical region (principal) | CPT/HCPCS: 72141 ==

== ENCOUNTER 2025-02-02 18:20 | Outpatient (REF) | payer OTHER, SELFPAY ==
--- OUTSIDE RECORDS SUMMARY | 2024-02-17 07:00 | XMS_ITS ---
Author Organization [facility] Address [address] [facility] [address] [place] [address] Care Team Providers Care Clothing Manager Name Role Phone April (RETIRED) Jamie MERCHANT Primary Care Provide Marques Ball [phone] REASON FOR VISIT Patient presents today for a ?colonoscopy Encounters Encounter Location Date Provider Diagnosis [facility] [address] [address] 02/17/2024 Marques Santiago Plan Of Treatment No Information Progress Notes * FARSHAD DENNISON RDOB:1979 (44 yo F)Acc No.[id number]:02/17/2024 Progress Notes Patient: Viral CROSS FARSHAD Felder Provider: Emerita Santiago MD :1980 A ge:43 Y S ex:Female Date:02/17/2024 Address:[address] [place], [place] [id number] Pcp:Jamie Chen (RETIRED )MD Subjective: * Chief Complaints: * 1 . Patient presents today for a ?colonoscopy. * Medical History: Objective: * Vitals: Assessment: Plan: * Treatment: * * The named appointment provid er may or may not be the originator of this progress note, and it is not deemed complete until electronically signed by the appointment provider. Sign off status: Pending * Provider: Emerita Santiago MD Date: 04/18/2023 Generated for Printi ng/Fabhupinderg/eTransmitting on: 1 06:29 PM EDT
--- OUTSIDE RECORDS SUMMARY | 2024-05-31 11:20 | XMS_ITS ---
Author Organization [facility] Address [address] [place] [phone] Care Team Providers Care Engineering Group Manager Name Role Phone April (RETIRED) Jamie MERCHANT Primary Care Provide Marques Ball [phone] REASON FOR VISIT COLONOSCOPY Encounters Encounter Location Date Provider Diagnosis [facility] [address] [place] [phone] 05/31/2024 Marques Santiago Plan Of Treatment No Information Progress Notes * MARYISAURAGilbert FARSHAD RDOB:1979 (44 yo F)Acc No.[id number]:05/31/2024 Progress Notes Patient: FARSHAD SALGUERO Provider: Emerita Santiago MD :1980 A ge:44 Y S ex:Female Date:05/31/2024 Address:[address] [place], [place] [phone] Pcp:Jamie Chen (RETIRED )MD Subjective: * Chief Complaints: * 1 . COLONOSCOPY. * Medical History: Objective: * Vitals: Assessment: Plan: * Treatment: * * The named appointment provid er may or may not be the originator of this progress note, and it is not deemed complete until electronically signed by the appointment provider. Sign off status: Pending * Provider: Emerita Santiago MD Date: 0 05/31/2024 Generated for Printi ng/Fabhupinderg/eTransmitting on: 1 06:29 PM EDT
--- OUTSIDE RECORDS SUMMARY | 2024-10-27 06:30 | XMS_ITS ---
Author Organization [facility] Address [address] [place] [phone] Care Team Providers Care Foreign Legal Consultant Name Role Phone April (RETIRED) Jamie MERCHANT Primary Care Provide Marques Ball [phone] REASON FOR VISIT ulcerative colitis,screening Encounters Encounter Location Date Provider Diagnosis [facility] Outpatient [address] [place] [phone] 10/27/2024 Maruqes Santiago Plan Of Treatment No Information Progress Notes * FARSHAD DENNISON RDOB:1979 (44 yo F)Acc No.[id number]:10/27/2024 COLON WITH MAC Patient: FARSHAD SALGUERO Provider: Emerita Santiago MD :1980 A ge:44 Y S ex:Female Date:10/27/2024 Address:[address] [place], [place] [phone] Pcp:Jamie Chen (RETIRED )MD Subjective: * Chief Complaints: * 1 . Ulcerative colitis,screening. * Medical History: Objective: * Vitals: Assessment: Plan: * Treatment: * * The named appointment provid er may or may not be the originator of this progress note, and it is not deemed complete until electronically signed by the appointment provider. Sign off status: Pending * Provider: Emerita Santiago MD Date: 0 10/27/2024 Generated for Printi ng/Fabhupinderg/eTransmitting on: 1 06:29 PM EDT
--- NOTE | ~2025-02-02 | MR_ITS ---
EXAMINATION: MR CERVICAL SPINE WITHOUT CONTRAST CLINICAL INFORMATION: M 47.812. Spondylosis without myelopathy or radiculopathy, cervical region. COMPARISON: None available. TECHNIQUE: MRI of the cervical spine was obtained using routine sequences without contrast. FINDINGS: Craniocervical junction is intact. Normal position of the cerebellar tonsils. Cisterna magna. Mild bone marrow STIR signal at C5-6. Multilevel marginal osteophyte formation and endplate irregularity, decreased intervertebral disc height and signal at C5-6 and to a lesser extent C6-7, C7-T1, C3-4 and C4-5 levels. Reverse curvature apex at C5-6. Posterior marginal osteophyte formation, C3-4. 1 mm retrolisthesis C3-4. Cervical spinal cord signal is normal. C2-3: Left-sided disc osteophyte consummation. No cord compression. Left neuroforamina narrowing. C3-4: Left-sided disc osteophyte consummation abutting the thecal sac. Left-sided neuroforamina narrowing. No cord compression. C4-5: Broad-based disc bulging resulting in reduced AP diameter of the thecal sac. No cord compression. No neuroforamina stenosis. C5-6: Broad-based disc osteophyte compresses formation slightly asymmetric to the right resulting in ventral spinal cord deformity. There is bilateral, right greater than the left neuroforamina stenosis. C6-7: Broad-based disc osteophyte compresses formation resulting in reduced AP diameter thecal sac. There is bilateral neuroforamina stenosis. C7-T1: Broad-based disc osteophyte consummation. No compression upon neural elements. Flow-void signal within the main cerebral vessels is normal. Codominant vertebral arteries. No prevertebral compartment hematoma, mass or fluid collections. There is fluid within the included esophagus.. MR/MR cervical spine wo con IMPRESSION: Multilevel cervical spondylosis, C3 C7 resulting in reverse curvature C5-6, central spinal canal and bilateral, right greater than left neuroforamina stenosis without cord edema and or myelopathy. Electronically signed by: Dimitry Jimenez MD 02/05/2025 06:47 AM [facility]
--- OUTSIDE RECORDS SUMMARY | 2025-02-02 18:29 | XMS_ITS | Patient Health Record ---
Author Organization [facility] Address [address] [place] [phone] Care Team Providers Care Automobile Engine Assembler Name Role Phone April (RETIRED) Jamie MERCHANT Primary Care Provide r Marques Escudero Unavailable [phone] Allergies Allergen (clinical drug ingredient) Drug/Non Drug Allergy documented on EMR Reaction Allergy Type Onset Date Status Gadolinium Unknown Drug Allergy Active Reason For Referral No Information Medications Medication SIG (Take, Route, Frequency, Duration) Notes Start Date End Date Status Ventolin HFA 108 (90 Base) MCG/ACT Inhalation; Duration: 50 Days Active SUMAtriptan Succinate 50 MG TAKE 1 TABLE T BY MOUTH DAILY NEEDED FOR HEADACHE Oral; Duration: 30 Days Active Mesalamine 1.2 GM 4 Orally Once a day; Duration: 30 day(s) 05/14/2024 Active DULoxetine HCl 20 MG Oral; Duration: 30 Active Immunizations Vaccine Route Administration Date [...] Problem Status W/U Status Risk Notes Problem Colon cancer screening (805894568) Colon cancer screening (Z12.11) Active confirmed Problem Chronic ulcerative rectosigmoiditis (48989238) 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) Active confirmed Problem Diarrhea (57242073) Diarrhea, unspecified type (R19.7) Active confirmed Vital Signs Temperature 97.5 degrees Fahrenheit 08/16/2024 Blood pressure diastolic 01 mm Hg 08/16/2024 Height 69 in 08/16/2024 Blood pressure systolic 001 mm Hg 08/16/2024 Weight 153.4 lbs 08/16/2024 BMI 22.65 kg/m2 08/16/2024 Procedures Procedure Date Ordered Date Performed Result Body Sit e COLONOSCOPY 08/16/2024 N/A Encounters Encounter Location Date Provider Diagnosis [facility] [address] [place] [phone] 08/16/2024 Marques Santiago Ulcerative rectosigmoiditis without complication K51.30 and Colon cancer screening Z12.11 [facility] [address] [place] [phone] 04/28/2024 Marques Santiago [facility] [address] [place] [phone] 08/15/2024 Marques Santiago [facility] [address] [place] [phone] 08/16/2024 Marques Santiago [facility] [address] [place] [phone] 10/23/2024 Marques Santiago Assessments Encounter Date Diagnosis (ICD [...] Name Order Date COLONOSCOPY 04/04/2013 COLONOSCOPY 04/07/2023 Insurance Providers Payer Name Payer Address Payer Phone Subscriber Number Group Number Insured Name Patient Relationship to Insured Coverage Start Date Coverage End Date [facility] [employer] [facility] [address] [address] [place], [place] [id number] FARSHAD CLINE Self - patient is the insured Medical (General) History Medical History History ICD Code Testicular cancer--08/2011 ri ght orchiectomy--10/2011-01/2012 chemo-Dr. Castellanos-in remission Denies VT,DM,CVA,Lung disease,renal dise ase Describes neg. celiac disease [...]
== END 2025-02-02 18:21 | disposition home or self-care (01) ==
LOC: HO.MRI 18:20
PROVIDERS: PCP Internal Medicine; Visit Provider Internal Medicine
DX: M47.812 Spondylosis without myelopathy or radiculopathy, cervical region (principal)
CPT/HCPCS: 72141

== ENCOUNTER 2025-04-02 14:25 | Outpatient (AMB) | payer OTHER, SELFPAY ==
--- OUTSIDE RECORDS SUMMARY | 2024-02-17 06:00 | XMS_ITS ---
Author Organization [facility] Address [address] [facility] [address] [place] [phone] Care Team Providers Care Seasonal Greenery Bundler Name Role Phone April (RETIRED) Jamie MERCHANT Primary Care Provide Marques Ball [phone] REASON FOR VISIT Patient presents today for a ?colonoscopy Encounters Encounter Location Date Provider Diagnosis [facility] [address] [address] 02/17/2024 Marques Santiago Plan Of Treatment No Information Progress Notes * FARSHAD DENNISON RDOB:1979 (45 yo F)Acc No.[id number]:02/17/2024 Progress Notes Patient: FARSHAD SALGUERO Provider: Emerita Santiago MD :1980 A ge:43 Y S ex:Female Date:02/17/2024 Address:[address] [place], [place] [id number] Pcp:Jamie Chen (RETIRED )MD Subjective: * Chief Complaints: * P atient presents today for a ?colonoscopy * The named appointment provid er may or may not be the originator of this progress note, and it is not deemed complete until electronically signed by the appointment provider. Sign off status: Pending * Provider: Emerita Santiago MD Date: 04/18/2023 Generated for Printi ng/Faxing/eTransmitting on: 04:46 PM EST
--- OUTSIDE RECORDS SUMMARY | 2024-05-31 10:20 | XMS_ITS ---
Author Organization [facility] Address [address] [place] [phone] Care Team Providers Care Strategic Client Executive Name Role Phone April (RETIRED) Jamie MERCHANT Primary Care Provide r Marques Escudero [phone] REASON FOR VISIT COLONOSCOPY Encounters Encounter Location Date Provider Diagnosis [facility] [address] [place] [phone] 05/31/2024 Marques Santiago Plan Of Treatment No Information Progress Notes * FARSHAD DENNISON RDOB:1979 (45 yo F)Acc No.[id number]:05/31/2024 Progress Notes Patient: FARSHAD SALGUERO Provider: Emerita Santiago MD :1980 A ge:44 Y S ex:Female Date:05/31/2024 Address:[address] [place], [place] [id number] Pcp:Jamie Chen (RETIRED )MD Subjective: * Chief Complaints: * C OLONOSCOPY * The named appointment provid er may or may not be the originator of this progress note, and it is not deemed complete until electronically signed by the appointment provider. Sign off status: Pending * Provider: Emerita Santiago MD Date: 0 05/31/2024 Generated for Printi ng/Fabhupinderg/eTransmitting on: 1 04:46 PM EST
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
[2025-04-02 14:40] VITALS: BP 102/64; PULSE 110; RESP 16; TEMP 36.3; O2SAT 97; BMI 23.5
--- OUTSIDE RECORDS SUMMARY | 2025-04-02 16:46 | XMS_ITS | Patient Health Record ---
Author Organization [facility] Address [address] [place] [phone] Care Team Providers Care Slurry Blender Name Role Phone April (RETIRED) Jamie MERCHANT Primary Care Provide r Marques Escudero Unavailable [phone] Allergies Allergen (clinical drug ingredient) Drug/Non Drug Allergy documented on EMR Reaction Allergy Type Onset Date Status Gadolinium Unknown Drug Allergy Active Reason For Referral No Information Medications Medication SIG (Take, Route, Frequency, Duration) Notes Start Date End Date Status Mesalamine 1.2 GM Tablet Delayed Release TAKE 4 TABLETS BY MOUTH ONCE DAILY; Duration: 30 Active Ventolin HFA 108 (90 Base) MCG/ACT Aerosol Solution Inhalation; Duration: 50 Days Active SUMAtriptan Succinate 50 MG Tablet TAKE 1 TABLET BY MOUTH DAILY NEEDED FOR HEADACHE Oral; Duration: 30 Days Active DULoxetine HCl 20 MG Capsule Delayed Release Particles Oral; Duration: 30 Active Immunizations Vaccine Route Administration Date Status Comme nts Influenza Unknown 03/05/2018 Administered Influenza Unknown 02/26/2021 Administered Influenza Unknown 04/05/2023 Administered Social History Tobacco Use: Social History Observation Description Date Details (start date - stop date) Former Smoker NA - NA Social History Drugs/Alcohol: Social Info Question Answer Notes Alcohol Screen Did you have a drink containing alcohol in the past year? Yes How often did you have a drink containing alcohol in the past year? Monthly or less (1 point) How many drinks did you have on a typical day when you were drinking in the past year? 1 or 2 drinks (0 point) How often did you have 6 or more drinks on one occasion in the past year? Never (0 point) Points 1 Interpretation Negative Tobacco Use: Social Info Question Answer Notes Tobacco Use/Smoking Patient is a former smoker When did you stop smoking? 2018 How long has it been since you last smoked? 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) 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) Active confirmed Problem Diarrhea (37387273) Diarrhea, unspecified type (R19.7) Active confirmed Vital Signs Temperature 97.5 degrees Fahrenheit 08/16/2024 Blood pressure diastolic 01 mm Hg 08/16/2024 Height 69 in 08/16/2024 Blood pressure systolic 001 mm Hg 08/16/2024 Weight 153.4 lbs 08/16/2024 BMI 22.65 kg/m2 08/16/2024 Procedures Procedure Date Ordered Date Performed Result Body Sit e COLONOSCOPY 08/16/2024 N/A Encounters Encounter Location Date Provider Diagnosis [facility] [address] [place] [phone] 08/16/2024 Marques Santiago Ulcerative rectosigmoiditis without complication K51.30 and Colon cancer screening Z12.11 [facility] [address] [place] [phone] 04/28/2024 Marques Santiago [facility] [address] [place] [phone] 08/15/2024 Marques Santiago [facility] [address] [place] [phone] 08/16/2024 Marques Santiago [facility] [address] [place] [phone] 10/23/2024 Marques Pamela Assessments Encounter Date Diagnosis (ICD Code) Assessment [...] Insured Coverage Start Date Coverage End Date [facility] [employer] [facility] [address] [address] [place], [place] [id number] FARSHAD CLINE Self - patient is the insured Medical (General) History Medical History History ICD Code Testicular cancer--08/2011 ri ght orchiectomy--10/2011-01/2012 chemo-Dr. Castellanos-in remission Denies SC,DM,CVA,Lung disease,renal dise ase Describes neg. celiac disease [...]
== END 2025-04-02 15:08 | disposition home or self-care (01) ==
LOC: HO.HMCHD 14:26
PROVIDERS: PCP Student in an Organized Health Care Education/Training Program; Visit Provider Student in an Organized Health Care Education/Training Program
DX: M54.2 Cervicalgia (principal); K51.919 Ulcerative colitis, unspecified with unspecified complications; R09.81 Nasal congestion; L98.9 Disorder of the skin and subcutaneous tissue, unspecified

== ENCOUNTER → 2025-04-02 14:25 | Outpatient (BNVA) | payer OTHER, SELFPAY | PROVIDERS: PCP Student in an Organized Health Care Education/Training Program; Visit Provider Student in an Organized Health Care Education/Training Program | DX: M54.2 Cervicalgia (principal); M48.02 Spinal stenosis, cervical region; K51.919 Ulcerative colitis, unspecified with unspecified complications; R09.81 Nasal congestion; L98.9 Disorder of the skin and subcutaneous tissue, unspecified; G43.909 Migraine, unspecified, not intractable, without status migrainosus; J45.909 Unspecified asthma, uncomplicated; G89.29 Other chronic pain; Z79.899 Other long term (current) drug therapy | CPT/HCPCS: 99212 ==